=== PATIENT | male | born 1955 | race Caucasian/White ===

== ENCOUNTER → 2020-11-20 | Outpatient (CLI) | payer MEDICARE, OTHER ==
[~2020-11-20] MED LIST: ALBUTEROL; ALLOPURINOL300 MG PO; CALCIUM PO; CRESTOR20 MG PO; FLOMAX 0.4 MG0.4 MG PO; FUROSEMIDE40 MG PO; LEVOTHYROXINE88 MC1 PO; METOPROLOL SUC100 MG PO; MIRALAX; OMEPRAZOLE40 MG PO; PRADAXA75 MG PO; SULFAMETHOXAZOLE; TRELEGY ELLIPT1 EAC1 INH; VENTOLIN HFA 66.7 GM INH; VITAMIN C500 MG PO; ZINC PO
[2020-11-20 13:30] LABS: HEMOGLOBIN 15.4 gm/dl (14.0-17.5); RED BLOOD COUNT 5.09 M/UL (4.20-5.50); WHITE BLOOD COUNT 9.3 K/UL (4.5-11.0)
[2020-11-20 13:49] LABS: BUN/CREATININE RATIO 20 (0-10)
== END ==
LOC: OPSV2 12:30
PROVIDERS: Orthopaedic Surgery
DX: Z01.818 Encounter for other preprocedural examination (principal); S82.852A Displaced trimalleolar fracture of left lower leg, initial encounter for closed fracture; Z20.822 Contact with and (suspected) exposure to COVID-19
CPT/HCPCS: 36415; 71046; 80048; 85027; 93005; U0003

== ENCOUNTER → 2020-11-24 | Day surgery (SDC) | payer MEDICARE, OTHER | END | disposition home or self-care (01) | LOC: OR 06:14 | DX: S82.852A Displaced trimalleolar fracture of left lower leg, initial encounter for closed fracture (principal); I11.0 Hypertensive heart disease with heart failure; I50.9 Heart failure, unspecified; E78.5 Hyperlipidemia, unspecified; J44.9 Chronic obstructive pulmonary disease, unspecified; I48.20 Chronic atrial fibrillation, unspecified; E03.9 Hypothyroidism, unspecified; M10.9 Gout, unspecified; K21.9 Gastro-esophageal reflux disease without esophagitis; Z79.899 Other long term (current) drug therapy; X58.XXXA Exposure to other specified factors, initial encounter | CPT/HCPCS: 73600; 76000; J0171; J0690; J1100; J2001; J2250; J2405; J2704; J2795; J3010; J7030; J7120 ==